=== PATIENT | male | born 1985 | race African-American/Black ===

== ENCOUNTER 2020-02-17 11:02 | Inpatient (IN) | payer MEDICAID, OTHER ==
[~2020-02-17] VITALS: Ht 177.8 cm; Wt 98.7 kg
[2020-02-17] MEDS ORDERED: SODIUM CHLORIDE 0.9% 1,000 ML IV ONE ×2 (11:23)
[2020-02-17 11:49] LABS: Basophils # (auto) 0 10 ^3/uL (0-0.2); Basophils % (auto) 0.9 % (0.0-2.0); Eosinophils # (auto) 0 10 ^3/uL (0-0.8); Eosinophils % (auto) 0.1 % (0.0-7.0); Hematocrit 33.7 % (41.0-53.0); Hemoglobin 10.9 g/dL (13.5-17.5); Lymphocytes # (auto) 1.3 10 ^3/uL (0.4-5.4); Lymphocytes % (auto) 22.8 % (10.0-50.0); Mean Corpuscular Hemoglobin 29.3 pg (28.0-32.0); Mean Corpuscular Hgb Conc. 32.4 g/dL (32.0-36.0); Mean Corpuscular Volume 90.2 fL (80.0-100.0); Monocytes # (auto) 0.8 10 ^3/uL (0-1.3); Monocytes % (auto) 13.7 % (0.0-12.0); Neutrophils # (auto) 3.5 10 ^3/uL (1.6-8.6); Neutrophils % (auto) 62.5 % (37.0-80.0); Nucleated Red Blood Cells % 0.8 %; Platelet Count (auto) 140 10^3/uL (140-450); Red Blood Cells 3.74 10^6/uL (4.5-5.90); White Blood Cell 5.6 10^3/uL (4.4-10.8)
[2020-02-17 11:52] LABS: Red Cell Distribution Width 22.3 % (11.8-14.3)
[2020-02-17 12:04] LABS: Albumin 3.8 g/dL (3.4-5.0); Anion Gap 24 (5-15); Blood Urea Nitrogen 5 mg/dL (7-18); Calcium 8.3 mg/dL (8.5-10.1); Carbon Dioxide 16 mmol/L (21-32); Chloride 96 mmol/L (98-107); Glucose 199 mg/dL (74-106); Sodium 136 mmol/L (136-145)
[2020-02-17 12:09] LABS: Alanine Aminotransferase 52 U/L (16-61); Alkaline Phosphatase 130 U/L (45-117); Aspartate Aminotransferase 363 U/L (15-37); Bilirubin, Total 0.7 mg/dL (0.2-1.0); GFR African American 94 mL/min; GFR Non-African American 78 mL/min; Total Protein 7.8 g/dL (6.4-8.2)
[2020-02-17 12:19] LABS: BUN/Creatinine Ratio 4.4
[2020-02-17 12:20] LABS: Potassium 2.8 mmol/L (3.5-5.1)
[2020-02-17] MEDS ORDERED: POTASSIUM EFFERVESENT TAB 25 MEQ PO ONE (12:45)
[2020-02-17] MEDS ORDERED: FOLIC ACID 1 MG TAB PO ONE (15:15)
[2020-02-17] MEDS ORDERED: MORPHINE SULF INJ 2 MG/ML SYRINGE 1ML IV PRN (15:15)
[2020-02-17] MEDS ORDERED: THIAMINE HCL 100 MG TAB PO ONE (15:15)
[2020-02-17] MEDS ORDERED: TEMAZEPAM 15 MG CAP PO PRN (15:15)
[2020-02-17] MEDS ORDERED: LACTATED RINGER'S 1,000 ML IV ONE (15:15)
[2020-02-17] MEDS ORDERED: MULTIPLE VITAMIN TAB PO ONE (15:15)
[2020-02-17] MEDS ORDERED: METOCLOPRAMIDE HCL 5MG/ml INJ 2ml VIAL IV PRN (15:15)
[2020-02-17] MEDS ORDERED: LORazepam 2MG/ML-1ML VIAL IV PRN (15:15)
[2020-02-17] MEDS ORDERED: LORazepam 0.5 MG TAB PO PRN (15:15)
[2020-02-17] MEDS ORDERED: POTASSIUM CHL 20MEQ/100ML 100 ML IV ONE (15:15)
[2020-02-17] MEDS ORDERED: ONDANSETRON HCL 4 MG/2 ML VIAL IV PRN (15:15)
[2020-02-17] MEDS ORDERED: D5W/SOD CHL 0.45%/KCL 40MEQ 1,000 ML IV ONE (15:15)
[2020-02-17] MEDS: SODIUM BICARBONATE 50ML VIAL 50 ML in SOD CHL 0.45% 1,000 ML IV SCH (15:15)
[2020-02-17] MEDS ORDERED: DEXTROSE (50%) 50ML SYRG IV PRN (15:15)
[2020-02-17] MEDS ORDERED: DOCUSATE SOD 100 MG CAP PO PRN (15:15)
[2020-02-17] MEDS ORDERED: MORPHINE SULFATE 4 MG/ML SYR/VIAL IV PRN (15:15)
[2020-02-17] MEDS ORDERED: ALUM & MAG HYDROX-SIMETH LIQ(MAALOX) 30 ML PO PRN (15:15)
[2020-02-17] MEDS ORDERED: NITROGLYCERIN 0.4 MG SL TAB SL PRN (15:15)
[2020-02-17 16:16] LABS: Urine Bacteria NONE SEEN /hpf (None Seen); Urine Blood Negative /uL (Negative); Urine Hyaline Cast FEW /lpf (0 - 2); Urine Specific Gravity 1.018 (1.001-1.035); Urine WBC <1 /hpf (0 - 3)
[2020-02-17] MEDS: chlordiazePOXIDE HCL 25 MG CAP PO SCH ×2 (16:30→23:11)
[2020-02-17] MEDS: ACCU-CHEK COMFORT CURVE STRIP VI SCH ×2 (17:00→22:31)
[2020-02-17] MEDS: InsuLIN REG 1unit/0.01ml Soln (100units/ml) SC SCH ×2 (17:00→22:31)
[2020-02-17] MEDS: D5W/SOD CHL 0.45%/KCL 40MEQ 1,000 ML IV SCH (20:15)
[2020-02-17] MEDS ORDERED: MAGNESIUM SULFATE 1GM/100ML 100 ML IV ONE (20:15)
[2020-02-17] MEDS ORDERED: PANTOPRAZOLE 40 MG/10 ML VIAL INJ IV ONE (20:15)
[2020-02-17 20:45] VITALS: BP 158/85
[2020-02-17 22:00] VITALS: BP 158/85
[2020-02-17] MEDS: HYDROcodone-ACET 5/325MG TAB PO PRN (22:32)
[2020-02-18] MEDS: D5W/SOD CHL 0.45%/KCL 40MEQ 1,000 ML IV SCH ×3 (03:27→23:01)
[2020-02-18] MEDS: InsuLIN REG 1unit/0.01ml Soln (100units/ml) SC SCH ×4 (06:06→22:00)
[2020-02-18] MEDS: ACCU-CHEK COMFORT CURVE STRIP VI SCH ×4 (06:07→22:00)
[2020-02-18 06:18] LABS: Hematocrit 31.1 % (41.0-53.0); Hemoglobin 10.4 g/dL (13.5-17.5); Mean Corpuscular Hemoglobin 29.8 pg (28.0-32.0); Mean Corpuscular Hgb Conc. 33.3 g/dL (32.0-36.0); Mean Corpuscular Volume 89.6 fL (80.0-100.0); Platelet Count (auto) 130 10^3/uL (140-450); Red Blood Cells 3.48 10^6/uL (4.5-5.90); White Blood Cell 6.3 10^3/uL (4.4-10.8)
[2020-02-18 06:19] VITALS: BP 148/102
[2020-02-18 06:19] LABS: Red Cell Distribution Width 22.6 % (11.8-14.3)
[2020-02-18 06:20] LABS: Band Neutrophils % (manual) 0; Basophils % (manual) 0 (0.0-2.0); Blast Cells 0; Eosinophils % (manual) 0 (0-7); Promyelocytes % 0; Reactive Lymphocytes 0
[2020-02-18 06:42] LABS: % Iron Saturation 24.4 % (20-55)
[2020-02-18 06:49] LABS: Albumin 3.1 g/dL (3.4-5.0); BUN/Creatinine Ratio 2.9; Bilirubin, Total 1.1 mg/dL (0.2-1.0); Calcium 7.3 mg/dL (8.5-10.1); Magnesium 1.6 mg/dL (1.6-2.6); Phosphorus 2.4 mg/dL (2.5-4.90); Total Protein 6.7 g/dL (6.4-8.2); Uric Acid 6.8 mg/dL (3.5-7.2)
[2020-02-18 06:59] LABS: Potassium 2.8 mmol/L (3.5-5.1)
[2020-02-18] MEDS: chlordiazePOXIDE HCL 25 MG CAP PO SCH ×3 (08:12→22:33)
[2020-02-18 08:22] LABS: Lymphocytes % (manual) 26 (10.0-50.0); Metamyelocytes % 1; Monocytes % (manual) 9 (0-12); Myelocytes % 1
[2020-02-18 09:00] VITALS: BP 143/94
[2020-02-18] MEDS: PANTOPRAZOLE 40 MG/10 ML VIAL INJ IV SCH (09:09)
[2020-02-18] MEDS: THIAMINE HCL 100 MG TAB PO SCH (09:09)
[2020-02-18] MEDS: FOLIC ACID 1 MG TAB PO SCH (09:09)
[2020-02-18] MEDS: MULTIPLE VITAMIN TAB PO SCH (09:09)
[2020-02-18] MEDS: HYDROcodone-ACET 5/325MG TAB PO PRN ×2 (09:10→20:58)
[2020-02-18] MEDS ORDERED: ENOXAPARIN SOD 40 MG/0.4 ML SYRINGE SC SCH (10:00)
[2020-02-18] MEDS ORDERED: FOLIC ACID 1 MG, MULTIPLE VITAMIN 10 ML, MAGNESIUM SULF SDV 50% 8 MEQ, THIAMINE INJ 100... INJ ONE ×5 (12:00)
[2020-02-18] MEDS: SODIUM BICARBONATE 50ML VIAL 50 ML in SOD CHL 0.45% 1,000 ML IV SCH (14:33)
[2020-02-18 17:00] VITALS: BP 148/100
[2020-02-18 22:00] VITALS: BP 148/96
[2020-02-18] MEDS ORDERED: PROPRANOLOL HCL 20 MG TAB PO SCH (22:00)
[2020-02-18] MEDS: POTASSIUM CHL 20 Meq TABLET PO SCH (22:33)
[2020-02-19 05:00] VITALS: BP 131/102
[2020-02-19 05:24] LABS: Basophils # (auto) 0 10 ^3/uL (0-0.2); Basophils % (auto) 0.5 % (0.0-2.0); Eosinophils # (auto) 0.1 10 ^3/uL (0-0.8); Eosinophils % (auto) 1.6 % (0.0-7.0); Hematocrit 32.7 % (41.0-53.0); Hemoglobin 10.6 g/dL (13.5-17.5); Lymphocytes # (auto) 1.9 10 ^3/uL (0.4-5.4); Lymphocytes % (auto) 31.9 % (10.0-50.0); Mean Corpuscular Hemoglobin 29.2 pg (28.0-32.0); Mean Corpuscular Hgb Conc. 32.4 g/dL (32.0-36.0); Mean Corpuscular Volume 90.3 fL (80.0-100.0); Monocytes # (auto) 0.6 10 ^3/uL (0-1.3); Monocytes % (auto) 9.7 % (0.0-12.0); Neutrophils # (auto) 3.3 10 ^3/uL (1.6-8.6); Neutrophils % (auto) 56.3 % (37.0-80.0); Nucleated Red Blood Cells % 0.6 %; Platelet Count (auto) 147 10^3/uL (140-450); Red Blood Cells 3.62 10^6/uL (4.5-5.90); White Blood Cell 5.9 10^3/uL (4.4-10.8)
[2020-02-19] MEDS: D5W/SOD CHL 0.45%/KCL 40MEQ 1,000 ML IV SCH ×3 (05:35→22:15)
[2020-02-19 05:44] LABS: Albumin 3.1 g/dL (3.4-5.0); Calcium 7.2 mg/dL (8.5-10.1); Potassium 3.6 mmol/L (3.5-5.1)
[2020-02-19 05:49] LABS: BUN/Creatinine Ratio 8.1; Bilirubin, Total 0.9 mg/dL (0.2-1.0); Magnesium 1.8 mg/dL (1.6-2.6); Red Cell Distribution Width 23.2 % (11.8-14.3); Total Protein 7.1 g/dL (6.4-8.2)
[2020-02-19] MEDS: ACCU-CHEK COMFORT CURVE STRIP VI SCH (06:03)
[2020-02-19] MEDS: InsuLIN REG 1unit/0.01ml Soln (100units/ml) SC SCH (06:03)
[2020-02-19 08:00] VITALS: BP 141/99
[2020-02-19] MEDS: FOLIC ACID 1 MG TAB PO SCH (10:00)
[2020-02-19] MEDS: THIAMINE HCL 100 MG TAB PO SCH (10:00)
[2020-02-19] MEDS: MULTIPLE VITAMIN TAB PO SCH (10:00)
[2020-02-19] MEDS: POTASSIUM CHL 20 Meq TABLET PO SCH ×2 (10:00→22:12)
[2020-02-19] MEDS ORDERED: chlordiazePOXIDE HCL 25 MG CAP PO SCH (10:00)
[2020-02-19] MEDS: PANTOPRAZOLE 40 MG/10 ML VIAL INJ IV SCH (10:00)
[2020-02-19 12:00] VITALS: BP 140/94
[2020-02-19] MEDS: PROPRANOLOL HCL 20 MG TAB PO SCH ×2 (14:55→22:15)
[2020-02-19 17:00] VITALS: BP 130/100
[2020-02-19 22:00] VITALS: BP 138/89
[2020-02-19] MEDS: HYDROcodone-ACET 5/325MG TAB PO PRN (22:13)
[2020-02-20] MEDS: D5W/SOD CHL 0.45%/KCL 40MEQ 1,000 ML IV SCH (05:40)
[2020-02-20] MEDS: HYDROcodone-ACET 5/325MG TAB PO PRN ×2 (05:40→21:06)
[2020-02-20 06:52] LABS: Hematocrit 31.8 % (41.0-53.0); Hemoglobin 10.6 g/dL (13.5-17.5); Mean Corpuscular Hemoglobin 30.4 pg (28.0-32.0); Mean Corpuscular Hgb Conc. 33.3 g/dL (32.0-36.0); Mean Corpuscular Volume 91.3 fL (80.0-100.0); Platelet Count (auto) 148 10^3/uL (140-450); Red Blood Cells 3.48 10^6/uL (4.5-5.90); Red Cell Distribution Width 23.8 % (11.8-14.3); White Blood Cell 5.1 10^3/uL (4.4-10.8)
[2020-02-20] MEDS ORDERED: chlordiazePOXIDE HCL 25 MG CAP PO SCH (07:00)
[2020-02-20 07:01] LABS: Albumin 2.9 g/dL (3.4-5.0); Calcium 7.1 mg/dL (8.5-10.1); Magnesium 1.7 mg/dL (1.6-2.6); Potassium 3.6 mmol/L (3.5-5.1)
[2020-02-20 07:06] LABS: BUN/Creatinine Ratio 9.1; Bilirubin, Total 0.7 mg/dL (0.2-1.0); Total Protein 6.8 g/dL (6.4-8.2)
[2020-02-20 07:27] LABS: Basophils % (manual) 0 (0.0-2.0); Blast Cells 0; Eosinophils % (manual) 0 (0-7); Promyelocytes % 0; Reactive Lymphocytes 0
[2020-02-20 08:15] LABS: Band Neutrophils % (manual) 1; Lymphocytes % (manual) 36 (10.0-50.0); Metamyelocytes % 1; Monocytes % (manual) 13 (0-12); Myelocytes % 2
[2020-02-20 09:00] VITALS: BP 146/102
[2020-02-20] MEDS: FOLIC ACID 1 MG TAB PO SCH (09:34)
[2020-02-20] MEDS: MULTIPLE VITAMIN TAB PO SCH (09:34)
[2020-02-20] MEDS: POTASSIUM CHL 20 Meq TABLET PO SCH ×2 (09:34→21:06)
[2020-02-20] MEDS: THIAMINE HCL 100 MG TAB PO SCH (09:34)
[2020-02-20] MEDS: PANTOPRAZOLE 40 MG/10 ML VIAL INJ IV SCH (09:35)
[2020-02-20] MEDS: PROPRANOLOL HCL 20 MG TAB PO SCH ×2 (09:35→21:05)
[2020-02-20] MEDS ORDERED: LISINOPRIL 10 MG TAB PO SCH (10:00)
[2020-02-20] MEDS: LISINOPRIL 10 MG TAB PO SCH (10:15)
[2020-02-20] MEDS ORDERED: LISINOPRIL 10 MG TAB PO ONE (10:45)
[2020-02-20 11:05] LABS: Folate (Folic Acid) 10.57 ng/mL (5.38-24)
[2020-02-20] MEDS ORDERED: FOLIC ACID 1 MG, MULTIPLE VITAMIN 10 ML, MAGNESIUM SULF SDV 50% 8 MEQ in D5W 5% 1,000 ML INJ SCH (12:00)
[2020-02-20 13:00] VITALS: BP 132/107
[2020-02-20] MEDS: cloNIDine HCL 0.1 MG TAB PO SCH ×2 (13:49→21:05)
[2020-02-20 16:55] VITALS: BP 132/93
[2020-02-20 22:00] VITALS: BP 141/97
[2020-02-21 05:00] VITALS: BP 138/90
[2020-02-21] MEDS: cloNIDine HCL 0.1 MG TAB PO SCH (06:08)
[2020-02-21 06:37] LABS: Albumin 3.4 g/dL (3.4-5.0); BUN/Creatinine Ratio 9.2; Bilirubin, Total 0.7 mg/dL (0.2-1.0); Calcium 8.2 mg/dL (8.5-10.1); Magnesium 2.2 mg/dL (1.6-2.6); Total Protein 7.6 g/dL (6.4-8.2)
[2020-02-21 08:00] VITALS: BP 141/75
[2020-02-21 09:00] VITALS: BP 141/75
[2020-02-21] MEDS: PANTOPRAZOLE 40 MG/10 ML VIAL INJ IV SCH (09:02)
[2020-02-21] MEDS: PROPRANOLOL HCL 20 MG TAB PO SCH (09:04)
[2020-02-21] MEDS: LISINOPRIL 10 MG TAB PO SCH (09:04)
[2020-02-21] MEDS: FOLIC ACID 1 MG TAB PO SCH (09:05)
[2020-02-21] MEDS: POTASSIUM CHL 20 Meq TABLET PO SCH (09:05)
[2020-02-21] MEDS: MULTIPLE VITAMIN TAB PO SCH (09:05)
[2020-02-21] MEDS: THIAMINE HCL 100 MG TAB PO SCH (09:05)
[2020-02-21 09:52] VITALS: BP 141/75
== END 2020-02-21 10:39 | disposition home or self-care (01) | DRG 775 ==
LOC: ER 11:02 → EDBD 11:02 → TELE 11:03 → TELE-CENTR 20:35
PROVIDERS: ADMIT Hospitalist; ATTEND Internal Medicine
DX: F10.239 Alcohol dependence with withdrawal, unspecified (principal); G93.40 Encephalopathy, unspecified; E87.2 Acidosis; R56.9 Unspecified convulsions; E44.1 Mild protein-calorie malnutrition; K29.20 Alcoholic gastritis without bleeding; G62.9 Polyneuropathy, unspecified; E87.6 Hypokalemia; I10 Essential (primary) hypertension; D64.9 Anemia, unspecified; Z68.31 Body mass index [BMI] 31.0-31.9, adult
CPT/HCPCS: 36415; 70450; 71045; 80053; 80061; 81001; 82306; 82550; 82607; 82746; 82962; 83036; 83540; 83550; 83735; 84100; 84132; 84443; 84484; 84550; 85007; 85025; 85027; 93005; 96361; 96365; C9113; G0378; J1815; J3480

== ENCOUNTER 2020-08-23 10:58 | Emergency (ER) | payer MEDICAID ==
[~2020-08-23] VITALS: Ht 185.4 cm; Wt 93.0 kg
[2020-08-23 11:45] LABS: Basophils # (auto) 0 10 ^3/uL (0-0.2); Eosinophils # (auto) 0 10 ^3/uL (0-0.8); Eosinophils % (auto) 0.9 % (0.0-7.0); Hematocrit 33.7 % (41.0-53.0); Hemoglobin 11.4 g/dL (13.5-17.5); Lymphocytes % (auto) 22.3 % (10.0-50.0); Mean Corpuscular Hemoglobin 29.9 pg (28.0-32.0); Mean Corpuscular Hgb Conc. 33.7 g/dL (32.0-36.0); Mean Corpuscular Volume 88.8 fL (80.0-100.0); Monocytes # (auto) 0.7 10 ^3/uL (0-1.3); Monocytes % (auto) 16.8 % (0.0-12.0); Neutrophils # (auto) 2.6 10 ^3/uL (1.6-8.6); Nucleated Red Blood Cells % 0.6 %; Platelet Count (auto) 96 10^3/uL (140-450); White Blood Cell 4.4 10^3/uL (4.4-10.8)
[2020-08-23 11:59] LABS: Albumin 3.4 g/dL (3.4-5.0); Anion Gap 10 (5-15); Blood Alcohol < 3.0 mg/dL (0-5); Blood Urea Nitrogen 5 mg/dL (7-18); Calcium 8.7 mg/dL (8.5-10.1); Carbon Dioxide 28 mmol/L (21-32); Chloride 99 mmol/L (98-107); Glucose 112 mg/dL (74-106); Sodium 137 mmol/L (136-145)
[2020-08-23] MEDS ORDERED: THIAMINE 100mg/ml INJ (200mg/2ml VIAL) IV ONE (12:00)
[2020-08-23] MEDS ORDERED: SODIUM CHLORIDE 0.9% 1,000 ML IV ONE ×2 (12:00)
[2020-08-23] MEDS ORDERED: chlordiazePOXIDE HCL 25 MG CAP PO ONE (12:00)
[2020-08-23 12:01] LABS: Red Cell Distribution Width 20.1 % (11.8-14.3)
[2020-08-23 12:02] LABS: Alanine Aminotransferase 62 U/L (16-61); Alkaline Phosphatase 81 U/L (45-117); Aspartate Aminotransferase 173 U/L (15-37); BUN/Creatinine Ratio 5.6; Bilirubin, Total 2.9 mg/dL (0.2-1.0); GFR African American 122 mL/min; GFR Non-African American 101 mL/min; Total Protein 7.3 g/dL (6.4-8.2)
[2020-08-23 14:10] VITALS: BP 129/87
[2020-08-23 14:24] LABS: Urine Bacteria NONE SEEN /hpf (None Seen); Urine Blood Negative /uL (Negative); Urine Hyaline Cast FEW /lpf (0 - 2); Urine Mucus FEW (None Seen); Urine Specific Gravity 1.014 (1.001-1.035); Urine WBC None Seen /hpf (0 - 3)
[2020-08-23 14:57] LABS: Alcohol, Urine < 3.0 mg/dL (0-10); Amphetamine Screen, Urine NEGATIVE (NEGATIVE); Barbiturate Scree,Urine NEGATIVE (NEGATIVE); Benzodiazephine Screen, Urine NEGATIVE (NEGATIVE); Cannabinoid Screen, Urine NEGATIVE (NEGATIVE); Cocaine Screen, Urine NEGATIVE (NEGATIVE); Opiate Scree,Urine NEGATIVE (NEGATIVE); Phencyclidine Screen, Urine NEGATIVE (NEGATIVE)
== END 2020-08-23 14:35 | disposition home or self-care (01) ==
LOC: ER 10:58
DX: F10.239 Alcohol dependence with withdrawal, unspecified (principal); E86.0 Dehydration
CPT/HCPCS: 36415; 71045; 80053; 80307; 80320; 81001; 85025; 96361; 96374; 99285; J3411; J7030